=== PATIENT | male | born 1985 | race African-American/Black ===

== ENCOUNTER 2020-10-10 18:18 | Inpatient (IN) | payer OTHER ==
[~2020-10-10] VITALS: Ht 177.8 cm; Wt 109.7 kg
[2020-10-10 18:28] VITALS: BP 112/76
[2020-10-10 18:55] LABS: HEMATOCRIT 48.1 % (42.0-52.0); HEMOGLOBIN 15.3 gm/dL (14.0-18.0); MCH 25.2 pg (26.0-34.0); MCHC 31.8 g/dL (28.0-37.0); MCV 79.2 fL (80.0-100.0); RBC 6.08 mil/uL (4.50-6.00); RDW 15.1 % (10.5-14.5); WBC 5.9 thou/uL (4.0-11.0)
[2020-10-10 19:03] LABS: CALCIUM 9.3 mg/dL (8.5-10.1); CREATININE 1.4 mg/dL (0.7-1.3); POTASSIUM 4.1 mmol/L (3.5-5.1)
[2020-10-10 19:13] LABS: ALBUMIN 3.8 g/dL (3.4-5.0); TOTAL BILIRUBIN 0.3 mg/dL (0.2-1.0); TOTAL PROTEIN 7.3 g/dL (6.4-8.2); TROPONIN-I 0.32 ng/mL (<0.06)
--- NOTE | 2020-10-10 20:14 | NUR ---
Kasey reports to hold heparin until she talks to admitting team due to low platelets
[2020-10-10 20:46] VITALS: BP 112/77
[2020-10-10 20:54] VITALS: BP 115/80
--- NOTE | 2020-10-10 21:15 | NUR ---
REPORT CALLED FROM PAULA IN ER. PT ARRIVED TO UNIT AT 2114. PT INDEPENDENTLY WALKED TO THE BED. PT CONNECTED TO TELE MONITOR AND ASSESSED PER UNIT POLICY. NO C/O OF ANY CP AT THIS TIME. ANTHONY MARTE AT BEDSIDE. PT COVID SWABBED PER PT REQUEST, PER ANTHONY MARTE PT DOES NOT NEED TO BE PLACED IN ENHANCED PRECAUTIONS PT PRESENTS WITH NO COVID SYMPTOMS OTHER THAT SOB WITH EXERTION. HEPARIN GTT STARTED PER POLICY, REFER TO EMAR. WILL CONTINUE TO MONITOR PT CLOSELY.
[2020-10-10 23:13] LABS: CHOLESTEROL 170 mg/dL (<200); HDL CHOLESTEROL 105 mg/dL (>40); LDL CHOLESTEROL 52 mg/dL (<100); TC:HDL 1.6 Ratio (Not establshd); TRIGLYCERIDE 66 mg/dL (<150); VLDL 13 mg/dL (<40)
[2020-10-10 23:23] LABS: SERUM ASSESSMENT Clear
[2020-10-11] VITALS (13 sets, daily range): BP systolic 99–132; BP diastolic 57–76
[2020-10-11 05:02] LABS: HEMOGLOBIN 14.3 gm/dL (14.0-18.0); MCH 25.4 pg (26.0-34.0); MCHC 32.4 g/dL (28.0-37.0); MCV 78.4 fL (80.0-100.0); RBC 5.61 mil/uL (4.50-6.00); RDW 14.8 % (10.5-14.5); WBC 5.2 thou/uL (4.0-11.0)
[2020-10-11 05:10] LABS: CALCIUM 8.7 mg/dL (8.5-10.1); CREATININE 1.2 mg/dL (0.7-1.3); POTASSIUM 3.8 mmol/L (3.5-5.1); TROPONIN-I 0.16 ng/mL (<0.06)
--- NOTE | 2020-10-11 07:08 | EKG ---
[address] [place] [address] ELECTROCARDIOGRAM REPORT Name: BLAIR SUBRAMANIAN Room #: 216-[facility]..#: [id number] Admission: 10/10/20 Attend Phys: Matthias Morales MD Discharge: Date of : 89 Report #: [id number] [facility] ED Test Date: 2020-10-10 Test Time: 18:23:56 Pat Name: BLAIR SUBRAMANIAN Department: Room: [facility] Gender: M Lithographers Printer: ALE : 1985 Requested By: Kalina Coon Order Number: [id number] MD: Lio Alves Measurements Intervals [place] Rate: 98 P: 73 MN: 176 QRS: -81 QRSD: 87 T: 43 QT: 350 QTc: 447 Interpretive Statements Sinus rhythm Left anterior fascicular block Abnormal T, consider ischemia, anterior leads No previous ECG available for comparison Electronically Signed On 10-11-2020 7:08:20 REFERRAL RN by Lio Alves [email or web address] <ELECTRONICALLY SIGNED> By: Lio Alves MD, [facility] 10/11/20 0708 182 22 Lio Alves MD, FACC /EPI
--- NOTE | 2020-10-11 07:44 | NUR ---
pt off unit at this time.
--- NOTE | 2020-10-11 08:03 | NUR ---
pt return to unit. assessed at bedside with dr. ross.
--- NOTE | 2020-10-11 08:08 | EKG ---
[address] [address] ELECTROCARDIOGRAM REPORT Name: BLAIR SUBRAMANIAN Room #: 216-[facility] M..#: [id number] Admission: 10/10/20 Attend Phys: Matthias Morales MD Discharge: Date of : 89 Report #: [id number] [facility] ED Test Date: 2020-10-10 Test Time: 19:39:03 Pat Name: BLAIR SUBRAMANIAN Department: Room: 216 Gender: M Asset Liability Analyst: ANGIE : 1985 Requested By: Matthias Moraels Order Number: [id number] MD: Chencho Claudio Measurements Intervals [place] Rate: 86 P: 71 TN: 173 QRS: -5 QRSD: 87 T: 45 QT: 364 QTc: 436 Interpretive Statements Sinus rhythm Nonspecific T abnormalities, anterior leads ST elev, probable normal early repol pattern Compared to ECG 10/10/2020 18:23:56 Electronically Signed On 10-11-2020 8:07:56 REGISTERED MIDWIFE by Chencho Claudio [email or web address] <ELECTRONICALLY SIGNED> By: Chencho Claudio MD 10/11/20806 38 38 Chencho Claudio MD /ALIN
--- NOTE | 2020-10-11 10:23 | NUR ---
PT OFF UNIT TO [facility].
--- NOTE | 2020-10-11 12:42 | 2DMMODE ---
[facility] [place] [address] 2 D/M-MODE ECHOCARDIOGRAM Name: BLAIR SUBRAMANIAN Room #: 216-P ADM Sarah M.R.#: [id number] Admission: 10/10/20 Attend Phys: Matthias Morales MD Discharge: Date of : 89 Report #: [id number] THIS REPORT FOR: cc: FAM - Family physician unknown FAM - Family physician unknown Vega Moses MD ~ APPROVED REPORT Study performed: 10/11/2020 09:47:51 EXAM: Comprehensive 2D, Doppler, and color-flow Echocardiogram Patient Location: Bedside Room #: 216 BSA: 2.24 HR: 70 bpm BP: 104/68 mmHg Rhythm: NSR Other Information Study Quality: Good Indications Elevated Troponin Chest Pain 2D Dimensions RVDd: 48.37 mm IVSd: 10.91 (7-11mm) LVOT Diam: 25.44 (18-24mm) LVDd: 47.31 mm PWd: 10.94 (7-11mm) Ascending Ao: 29.25 (22-36mm) LVDs: 36.66 (25-40mm) Aortic Root: 30.31 mm IVC: 24.00 mm Volumes Left Atrial Volume (Systole) Single Plane 4CH: 48.01 mL Single Plane 2CH: 41.03 mL LA ESV Index: 24.00 mL/m2 Aortic Valve AoV Peak Baldo.: 0.93 m/s AO Peak Gr.: 3.47 mmHg LVOT Max P.73 mmHg LVOT Max V: 0.83 m/s OLY Vmax: 4.50 cm2 [facility] [address] [address] 2 D/M-MODE ECHOCARDIOGRAM Name: MARYFREDBLAIR Room #: 216-P [facility] IN .R.#: [id number] Admission: 10/10/20 Attend Phys: Carmencita Christie Discharge: Date of : 89 Report #: [id number] Mitral Valve E/A Ratio: 1.0 MV Decel. Time: 203.48 ms MV E Max Baldo.: 0.40 m/s MV A Baldo.: 0.40 m/s MV PHT: 59.01 ms IVRT: 115.34 ms Pulmonary Valve PV Peak Baldo.: 0.79 m/s PV Peak Gr.: 2.47 mmHg Pulmonary Vein P Vein S: 0.16 m/s P Vein A: 0.21 m/s P Vein D: 0.24 m/s P Vein A Dur.: 101.5 msec P Vein S/D Ratio: 0.67 Tricuspid Valve TR Peak Baldo.: 3.34 m/s TR Peak Gr.: 44.53 mmHg PA Pressure: 55.00 mmHg Left Ventricle The left ventricle is normal size. There is global hypokinesis of the left ventricle. There is normal left ventricular wall thickness. Left ventricular systolic function is moderate to severely decreased. LVEF is 35%. Right Ventricle Right ventricle is at the upper limits of normal. The right ventricular systolic function is normal. Atria The left atrium size is normal. Right atrium is dilated. Aortic Valve The aortic valve is normal in structure. No aortic regurgitation is present. There is no aortic valvular stenosis. Mitral Valve The mitral valve is normal in structure. There is no mitral valve regurgitation noted. No evidence of mitral valve stenosis. Tricuspid Valve The tricuspid valve is normal in structure. There is trace to mild tricuspid regurgitation. The right atrial pressure is estimated at 50 [facility] [address] [place] [address] 2 D/M-MODE ECHOCARDIOGRAM Name: BLAIR SUBRAMANIAN Room #: 216-P ADM IN .R.#: [id number] Admission: 10/10/20 Attend Phys: Carmencita Christie Discharge: Date of : 89 Report #: [id number] mmHg. There is moderate pulmonary hypertension. Pulmonic Valve The pulmonary valve is normal in structure. There is no pulmonic valvular regurgitation. Great Vessels The aortic root is normal in size. IVC is dilated and collapses >50% with inspiration. Pericardium There is no pericardial effusion. <Conclusion> The left ventricle is normal size. There is normal left ventricular wall thickness. Left ventricular systolic function is moderate to severely decreased. Right ventricle is at the upper limits of normal. The left atrium size is normal. The aortic valve is normal in structure. There is no mitral valve regurgitation noted. There is trace to mild tricuspid regurgitation. The right atrial pressure is estimated at 50 mmHg. <ELECTRONICALLY SIGNED> By: Vega Moses MD 10/11/201241 41 41 Vega Moses MD /INF
--- NOTE | 2020-10-11 13:00 | NUR ---
PT S/P CARDIAC CATH WITH NO INTERVENTION. RIGHT GROIN CDI WITH NO HEMATOMA. WILL COONTINUE TO ASSESS.
--- NOTE | 2020-10-11 17:25 | CATHLAB ---
[facility] [place] [address] INVASIVE PROCEDURE REPORT Name: BLAIR SUBRAMANIAN Room #: 216-P ADM IN M.R.#: [id number] Admission: 10/10/20 Attend Phys: Matthias Morales MD Discharge: Date of : 89 Report #: [id number] THIS REPORT FOR: cc: FAM - Family physician unknown FAM - Family physician unknown Vega Moses MD ~ APPROVED REPORT Study performed: 10/11/2020 09:36:36 Patient Details Patient Status: In-Patient Room #: The patient is a 35 year-old male Event Personnel Vega Moses Telecommunicator, Hanh Diamond RN RN, Gladis Fenton Monitor, Ivett Baxter RT(R)() Scrub Procedures Performed Art Access - R femoral artery* [id number] Initial Mod Sed Same Phys/QHP Gr5y [id number] Left Heart Cath w/or w/o Coronaries [id number] [facility] Hemostasis with Manual pressure Indication Dyspnea, Cardiomyopathy, Chest pain Risk Factors Hypercholesterolemia Procedure Narrative The patient was brought urgently to the Cardiac Catheterization Laboratory and was prepped and draped in a sterile manner. The Right Groin^ was infiltrated with 1% Lidocaine subcutaneous anesthesia. A PINNACLE 4FR Sheath #[id number] sheath was inserted into the RFA^. Coronary angiography was performed using coronary diagnostic catheters. The right coronary system was accessed and visualized with a JR 4 catheter. The left coronary system was accessed and visualized with a JL 4 catheter. The left ventricle was accessed and visualized with a Pigtail catheter. Left ventricular/Aortic Valve gradient assessed via catheter pullback. Left ventriculogram was performed in SHORT projection. Hemostasis was obtained with manual pressure following sheath removal without any complications. The patient tolerated the procedure well and there were no complications associated with the procedure. There was no hematoma. [facility] [address] [place] [address] INVASIVE PROCEDURE REPORT Name: MARYFREDBLAIR Room #: 216-P [facility] IN ..#: [id number] Admission: 10/10/20 Attend Phys: Carmencita Christie Discharge: Date of : 89 Report #: [id number] Intraoperative Conscious Sedation Sedation start time: 11:14 Case end Time: 11:37 Fentanyl 100 mcg Versed 1 mg Fluoro Time: 2.90 minutes Dose: DAP 6622.00 cGycm2 918 mGy Contrast Type and Amount: Omnipaque 95 ml Coronary Angiography The patient's coronary anatomy is right dominant. Diagnostic Cath Left Main The left main artery is a large-caliber vessel, patent with no flow-limiting lesions. LAD The LAD is a moderate-sized caliber vessel, traverses the anterior wall and terminates at the apex. This vessel is patent with no flow-limiting lesions. Diagonal 1 This is a moderate-sized caliber vessel, patent with no flow-limiting lesions. Diagonal 2 This is a moderate-sized caliber vessel, patent with no flow-limiting lesions. Circumflex This is a moderate-sized caliber vessel, appears angiographically normal. OM1 There is a small to moderate-sized caliber vessel, with no flow-limiting lesions. OM2 There is a small to moderate-sized caliber vessel, with no flow-limiting lesions. Right Coronary The RCA is a moderate to large caliber vessel, patent with no flow-limiting lesions. R PDA This is a moderate-sized caliber vessel, appears angiographically normal. RPLV This is a moderate-sized caliber vessel, appears angiographically normal. Left Ventriculography The left ventricle is mildly dilated in size with Diminished contractility. The left ventricular ejection fraction is estimated to be 30-35%. Hemodynamics The aortic pressure is 105/89 mmHg with a mean of 92 mmHg. The left ventricular pressure is 111/6 mmHg with a mean of mmHg. The left ventricular end diastolic pressure is 16 mmHg. [facility] [address] [place] [address] INVASIVE PROCEDURE REPORT Name: BLAIR SUBRAMANIAN Room #: [address] [place] [address] [place] ..#: [id number] Admission: 10/10/20 Attend Phys: Carmencita Christie Discharge: Date of : 89 Report #: [id number] Conclusion 1. Angiographically normal coronary arteries. 2. Nonischemic cardiomyopathy. 3. Recommend Guideline directed medical therapy. <ELECTRONICALLY SIGNED> By: Vega Moses MD 10/11/201724 24 24 Vega Moses MD /INF
[2020-10-12 03:06] LABS: GLYCOHEMOGLOBIN (HGB A1C) 5.5 % (4.8-5.6)
[2020-10-12 04:38] VITALS: BP 107/63
[2020-10-12 05:01] LABS: HEMATOCRIT 45.9 % (42.0-52.0); HEMOGLOBIN 14.8 gm/dL (14.0-18.0); MCH 25.2 pg (26.0-34.0); MCHC 32.2 g/dL (28.0-37.0); MCV 78.3 fL (80.0-100.0); RBC 5.87 mil/uL (4.50-6.00); RDW 14.9 % (10.5-14.5); WBC 4.2 thou/uL (4.0-11.0)
[2020-10-12 05:27] LABS: CALCIUM 8.8 mg/dL (8.5-10.1); CREATININE 1.4 mg/dL (0.7-1.3); POTASSIUM 3.8 mmol/L (3.5-5.1)
--- NOTE | 2020-10-12 05:45 | NUR ---
ASSESSMENTS CHARTED, MEDS CHARTED GIVEN. PATIENT RESTING IN BED DURING SHIFT. UP AT DIDI IN ROOM. PATIENT WENT TO [facility] YESTERDAY, NO INTERVENTIONS, RIGHT GROIN SITE DRY AND INTACT. PATIENT HAS EF OF 35%. PATIENT REFERRED TO CARDIAC REHAB. FALL PRECAUTIONS IN PLACE DURING SHIFT.
[2020-10-12 08:00] VITALS: BP 122/75
[2020-10-12] MEDS ORDERED: CARVEDILOL3.125 MG PO (09:54)
[2020-10-12] MEDS ORDERED: ASPIRIN325 PO (09:54)
--- NOTE | 2020-10-12 09:55 | NUR ---
DISCONTINUE IV AND TELE. RIGHT GROIN CDI WITH NO HEMATOMA. PT UNDERSTANDS ALL FOLLOW UP ORDERS. WILL DC TO HOME.
[2020-10-12 12:42] VITALS: BP 123/77
== END 2020-10-12 13:00 | disposition home or self-care (01) | DRG 280 ==
LOC: ER 18:18 → EROBS 20:39 → 2N 20:39
PROVIDERS: Internal Medicine Cardiovascular Disease; Nurse Practitioner Family; ADMIT Hospitalist; ATTEND Hospitalist
DX: I21.4 Non-ST elevation (NSTEMI) myocardial infarction (principal); N17.0 Acute kidney failure with tubular necrosis; I42.8 Other cardiomyopathies; R55 Syncope and collapse; Z20.822 Contact with and (suspected) exposure to COVID-19; F17.210 Nicotine dependence, cigarettes, uncomplicated; Z82.49 Family history of ischemic heart disease and other diseases of the circulatory system; Z83.3 Family history of diabetes mellitus; Z82.5 Family history of asthma and other chronic lower respiratory diseases
CPT/HCPCS: 10081